=== PATIENT | female | born 1975 | race Caucasian/White ===

== ENCOUNTER 2022-10-29 21:27 | Emergency (ER) | payer MEDICAID | END 2022-10-29 21:55 | disposition left against medical advice (07) | LOC: LB.ED 21:27 | DX: Z53.21 Procedure and treatment not carried out due to patient leaving prior to being seen by health care provider (principal) ==

== ENCOUNTER 2022-11-04 21:14 | Emergency (ER) | payer MEDICAID ==
[2022-11-04] MEDS ORDERED: cefTRIAXone 1 GM Vial IM ONE (21:50)
[2022-11-04] MEDS ORDERED: Ketorolac 60 MG/2 ML SDV IM ONE (21:50)
[2022-11-04] MEDS ORDERED: Acetaminophen/HYDROcodone 325-5 MG Tab ONE (22:00)
[2022-11-04] MEDS ORDERED: Lidocaine 1% 5 ML VIAL INJECT ONE (22:31)
== END 2022-11-04 22:10 | disposition home or self-care (01) ==
LOC: LB.ED 21:14
DX: K02.63 Dental caries on smooth surface penetrating into pulp (principal); F17.210 Nicotine dependence, cigarettes, uncomplicated
CPT/HCPCS: 96372; 99282; A9270; J0696; J1885